=== PATIENT | female | born 1995 | race Caucasian/White ===

== ENCOUNTER 2023-05-23 19:33 | Emergency (ER) | payer OTHER ==
[2023-05-23 20:07] VITALS: TEMP 98.9; BMI 28.3
[2023-05-23] MEDS ORDERED: CEPHALEXIN MONOHYDRATE 500 MG CAPSULE (UD) ONE (23:12)
[2023-05-23] MEDS: CEPHALEXIN 250 MG/5 ML ORAL SUSPENSION PO ONE (23:13)
[2023-05-23] MEDS ORDERED: KETOROLAC TROMETHAMINE 30 MG/1 ML VIAL ONE (23:23)
[2023-05-23] MEDS: KETOROLAC TROMETHAMINE 30 MG/1 ML VIAL IM ONE (23:26)
[2023-05-23 23:38] VITALS: BP 122/73; PULSE 80; RESP 18
== END 2023-05-23 23:37 | disposition home or self-care (01) ==
LOC: JERFT 19:33 → JER 19:33 → JERFT 23:37
PROC: 3E0233Z Introduction of Anti-inflammatory into Muscle, Percutaneous Approach (ICD-10-PCS; principal; 2023-05-23)
DX: L03.113 Cellulitis of right upper limb (principal); L08.9 Local infection of the skin and subcutaneous tissue, unspecified; M79.641 Pain in right hand
CPT/HCPCS: 87070; 87077; 87205; 99284-25